=== PATIENT | female | born 1995 | race Caucasian/White ===

== ENCOUNTER 2017-03-18 14:29 | Emergency (ER) | payer OTHER ==
[~2017-03-18] VITALS: Ht 167.6 cm; Wt 59.1 kg
[2017-03-18 14:33] VITALS: BP 132/92; PULSE 68; RESP 20; O2SAT 100
--- NOTE | 2017-03-18 15:23 | DRSVH ---
PROCEDURE: X-RAY CHEST, TWO VIEWS ([id number]) INDICATIONS: Positive PPD TECHNIQUE: 2 views of the chest were acquired. COMPARISON: None. FINDINGS: Surgical changes and devices: None. Lungs and pleura: No pleural effusions or pneumothorax. Lungs are clear. Mediastinum: Mediastinal contours are normal. Heart size is normal. Bones and chest wall: No suspicious bony abnormalities. Soft tissues appear unremarkable. IMPRESSION: No acute cardiopulmonary disease process. Dictated by: Lilia Hernandez MD, PhD on 03/18/2017 at 15:21 Approved by: Lilia Hernandez MD, PhD on 03/18/2017 at 15:21
--- NOTE | 2017-03-18 15:53 | ED.REPORT ---
HPI-General Illness Date of Service Mar 18, 2017 ED Provider: Giacomo Rosenthal MD Pt is a 21 year old female who presents to the ED with concerns for a positive TB test that she recently had drawn at the occupational medicine clinic in [facility]. 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 She was called by the health department today saying that her blood test for TB came back positive , and she should come in to the ED to get a chest x-ray. She additionally reports that she has had a productive cough for the past several months. The sputum is a dark color, and she attributes this to her recent relapse of heroin and cocaine usage. She repots that this cough has been decreasing in severity as she lessens her drug use. She denies any fevers, abdominal pain, weight loss or any recent travel. She has no other complaints. Nursing Notes Stated Complaint: TB RESULTS POSITIVE Chief Complaint: Respiratory Complaints Nursing Notes Reviewed: Yes ([employer], [employer] not reconciled) General Time Seen by MD: 15:29 Chief Complaint Other (Positive TB lab) Hx Obtained From: Patient Arrived By: Walk-in Sudden in Onset?: Yes Onset Occurred: Just prior to arrival Symptom Duration: Since onset Severity: Current: No pain currently Severity: Maximum: No pain Similar Sx Previous: Yes Past Medical History Past Medical History IV drug use Smoking History Current Some Day Smoker Social History Drug Use: In recovery, Cocaine, IV drugs Ambulatory Status Independent Review of Systems Full Review of Systems Constitutional: Denies: Chills, Fever, Malaise, Recent wt loss Respiratory: Reports: Prod cough, brown, Denies: Shortness of breath, Wheezing Cardiovascular: Denies: Chest pain, Syncope GI: Denies: Abdominal pain, Constipation, Diarrhea, Nausea, Vomiting Female: Denies: Dysuria Neurologic: Denies: Change LOC, Dizziness, Headache, Syncope Complete sys rev & neg: except as marked. Physical Exam Vital Signs Vital Signs Date Time Temp Pulse Resp B/P Pulse Ox O2 Delivery O2 Flow Rate FiO2 03/18/17 14:33 37 68 20 132/92 100 Room Air Initial VS: Reviewed, Vital signs normal General/Constitutional: Well-developed, Well-nourished Head / Eyes: Atraumatic, Normocephalic, PERRL ENT: Mucous membranes moist, Conjunctiva normal, No scleral icterus Neck: Supple, Non-tender, Full range of motion Respiratory: Breath sounds normal, Clear to auscultation, No respiratory distress Skin: Warm, Dry, No cyanosis Neurologic: Alert, Oriented, Nonfocal Interpretation & Diagnostics X-Ray Chest Interpretation Chest Xray Interpretation: IMPRESSION: No acute cardiopulmonary disease process. Dictated by: Lilia Hernandez MD, PhD on 03/18/2017 at 15:21 Interpretation / Wet Read by: Interpret - Radiologist Re-Eval/Medical Decision Med Decision/Clinical Course This is a healthy 21-year-old female presents admitted referred in to the emergency department for chest x-ray given that for healthcare employment she had a interfering gold TB test performed in recent weeks, as returned positive. She reports she did have a cough a few months ago but is mostly resolved. She denies fevers, night sweats. Her risk factor for TB was that that she used drugs, but reports he can clean for several months. She has no travel out of the country. No known TB exposures. She has no complaints and states she feels well. On exam she has no abnormalities. She clinically appears well. A chest x-ray is obtained and is negative. Discussed the interpretation of the quadrant TB test with infectious disease indicates this is just a marker of latent disease, but no active treatment precautions required at this time. She can follow-up with the ID to discuss treatment if she so desires, and referral information is provided. She is reassured and discharged in good condition. Source of Hx: Old records Time of Eval: 15:56 Re-Evaluation/Progress Note: Pt is rechecked and informed of her diagnosis and the plan to discharge her at this time. She understands and agrees. All questions are addressed. Consultation : Referral / Consult Name: Alec Lantigua MD Call Returned at: 15:58 [employer]: Agrees with eval, Agrees with plan Note: Infectious disease physician agrees that no additional work up is required with the negative CXR. 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 Your recent blood test (quantiferon TB) indicates that you have what is referred to as "latent" tuberculosis. It suggests that you have been exposed in the past, but that there are no findings that is actually causing an active infection or problem at this time. Your chest x-ray here was normal. 2. You do not have to take any special cautions and do not require any treatment at this time. 3. There is a possibility that in the future you could develop active TB- symptoms of fever, chills, weight loss, worsening cough. 4. You can follow up with the infectious disease doctor Dr. Lantigua to discuss the possibility of treatment of latent TB. 5. Return if any new or worsening symptoms. Referrals: [facility] (PCP) Diana Attestation Portions of this note were transcribed by Maren Garvin.. I, Dr. Rosenthal personally performed the history, physical exam and medical decision-making; I reviewed and confirmed the accuracy of the information in the transcribed note. Signed by:Diana Abad, 03/18/2017 15:55. Giacomo Rosenthal MD Mar 18, 2017 15:53 DARRELL GARVIN Mar 18, 2017 15:58
== END 2017-03-18 16:15 | disposition home or self-care (01) ==
LOC: SED 14:29
DX: R76.11 Nonspecific reaction to tuberculin skin test without active tuberculosis (principal); F17.200 Nicotine dependence, unspecified, uncomplicated